=== PATIENT | female | born 1990 ===

== ENCOUNTER 2018-09-02 08:19 | Inpatient (IN) | payer MEDICAID ==
[2018-09-02 08:19] VITALS: BMI 37.1
[2018-09-02 08:27] VITALS: O2SAT 99
--- NOTE | 2018-09-02 09:58 | C.PDOC ---
History Of Present Illness 28 year old female with a PMHx of anxiety and depression presents for evaluation of depression. The patient states feeling more depressed over the last 3-4 months with intermittent SI but denies a plan. She notes worsening of symptoms prompting ED visit. Denies feeling SI in the ED. Denies HI and any other associated symptoms. Time Seen by Provider: 09/02/18 08:28 Chief Complaint (Nursing): Psychiatric Evaluation History Per: Patient History/Exam Limitations: no limitations Onset/Duration Of Symptoms: Other (3-4 months) Current Symptoms Are (Timing): Still Present Associated Symptoms: Depression, Suicidal Thoughts. denies: Suicidal Plan Recent travel outside of the [place]: No Past Medical History Reviewed: Historical Data, Nursing Documentation, Vital Signs Vital Signs: Last Vital Signs Temp 98.4 F 09/02/18 08:21 Pulse 71 09/02/18 08:21 Resp 20 09/02/18 08:21 BP 100/71 09/02/18 08:21 Pulse Ox 99 09/02/18 08:21 - Medical History PMH: Bipolar Disorder, Depression Denies: Chronic Kidney Disease Surgical History: Cholecystectomy, Family History: States: Unknown Family Hx - Social History Hx Tobacco Use: No Hx Alcohol Use: No Hx Substance Use: No - Immunization History Hx Tetanus Toxoid Vaccination: No Hx Influenza Vaccination: Yes Hx Pneumococcal Vaccination: No Review Of Systems Except As Marked, All Systems Reviewed And Found Negative. Psych: Positive for: Depression. Negative for: Suicidal ideation, Other (Homicial ideations. ) Physical Exam - Physical Exam Appears: Non-toxic, No Acute Distress Skin: Warm, Dry, No Rash Head: Atraumatic, Normacephalic Eye(s): bilateral: Normal Inspection Oral Mucosa: Moist Throat: No Erythema, No Exudate Neck: Normal ROM, Supple Chest: Symmetrical, No Deformity Cardiovascular: Rhythm Regular, No Friction Rub, No Murmur Respiratory: Normal Breath Sounds, No Rales, No Rhonchi, No Wheezing Gastrointestinal/Abdominal: Normal Exam, Soft, No Tenderness Back: Normal Inspection, No CVA Tenderness Extremity: Normal ROM, No Swelling Extremity: Bilateral: Atraumatic, Normal Color And Temperature, Normal ROM Neurological/Psych: Oriented x3, Normal Speech, Normal Cognition, Normal Motor, Normal Sensation Gait: Steady ED Course And Treatment - Laboratory Results Result Diagrams: 09/02/18 10:26 09/02/18 10:26 O2 Sat by Pulse Oximetry: 99 (RA) Pulse Ox Interpretation: Normal Medical Decision Making Medical Decision Making: Initial plan: -Blood sent. -Urine HCG -Urinalysis The case was discussed with psych oncall and agrees to admit the patient. Disposition - Disposition Disposition: HOME/ ROUTINE Disposition Time: 11:35 Condition: GOOD Forms: [employer] ([employer]) - POA Present On Arrival: None - Clinical Impression Clinical Impression: Bipolar disorder, Depressive episode - PA / PHYSICAL EDUCATION DEPARTMENT CHAIR / Resident Statement MD/DO has reviewed & agrees with the documentation as recorded. - Scribe Statement The provider has reviewed the documentation as recorded by the Scribe (Jihan Gabriel) All medical record entries made by the Scribe were at my direction and personally dictated by me. I have reviewed the chart and agree that the record accurately reflects my personal performance of the history, physical exam, medical decision making, and the department course for this patient. I have also personally directed, reviewed, and agree with the discharge instructions and disposition.
[2018-09-02 10:43] LABS: BASO % 0.3 % (0.0-2.0); EOS # 0.1 K/uL (0.0-0.7); EOS % 0.9 % (0.0-4.0); HEMOGLOBIN 12.8 g/dL (11.0-16.0); LYMPH # 1.1 K/uL (1.0-4.3); LYMPH % 16.2 % (20.0-40.0); MEAN CELL VOLUME 82.2 fL (81.0-99.0); MEAN CORPUSCULAR HEMOGLOBIN 27.9 pg (27.0-31.0); MEAN CORPUSCULAR HGB CONC 33.9 g/dL (33.0-37.0); MEAN PLATELET VOLUME 7.2 fL (7.2-11.7); MONO # 0.3 K/uL (0.0-0.8); MONO % 4.5 % (0.0-10.0); NEUT # 5.1 K/uL (1.8-7.0); NEUT % 78.1 % (50.0-75.0); RBC 4.59 Mil/uL (3.80-5.20); RED CELL DISTRIBUTION WIDTH 14.9 % (11.5-14.5); WHITE BLOOD COUNT 6.5 K/uL (4.8-10.8)
[2018-09-02 10:54] LABS: ALB/GLOB RATIO 1.4 (1.0-2.1); ALBUMIN 4.3 g/dL (3.5-5.0); ALT/SGPT 23 U/L (9-52); AST/SGOT 34 U/L (14-36); BLOOD UREA NITROGEN 18 mg/dL (7-17); GFR NON-AFRICAN AMERICAN > 60
[2018-09-02 11:00] LABS: HCG,QUALITATIVE URINE NEGATIVE (NEGATIVE)
[2018-09-02 11:02] LABS: SQUAMOUS EPITHIAL 1 /hpf (0-5); URINE BILIRUBIN NEGATIVE (NEGATIVE); URINE BLOOD NEGATIVE (NEGATIVE); URINE CLARITY Clear (Clear); URINE COLOR Straw (YELLOW); URINE GLUCOSE (UA) NORMAL (Normal); URINE LEUKOCYTE ESTERASE NEG Leu/uL (Negative); URINE PROTEIN NEGATIVE (NEGATIVE); URINE UROBILINOGEN NORMAL mg/dL (0.2-1.0)
[2018-09-02 11:04] LABS: BARBITURATES, UR NEGATIVE (NEGATIVE); BENZODIAZEPINES, UR NEGATIVE (NEGATIVE); OPIATES, UR NEGATIVE (NEGATIVE); PHENCYCLIDINE, UR NEGATIVE (NEGATIVE)
--- NOTE | 2018-09-02 12:01 | PCM.PSYCH ---
Initial Psychiatric Evaluation - Initial Psychiatric Evaluation Type of Admission: Voluntary Legal Status: Capacity Chief Complaint (in patient's own words): I was feeling depressed and suicidal. History of Present Illness and Precipitating Events: Pt is a 28 year old female, who came to the [facility] (formerly [facility]) emergency department for worsening symptoms of depression, anxiety, and fleeting suicidal thoughts. Patient denies any past history of any inpatient psychiatric hospitalizations and but reports history of follow-up with [facility] in the past. Patient reports that she has been feeling increasingly depressed and suicidal for the past 3-4 weeks. She reports that she has been feeling hopeless and helpless about the situation with her son and does not know where he is and the courts won't help. Patient's son's father has not been compliant with court requirements of allowing pt to see her son minimum x2 hours weekly, and now she does not know where he is. Yesterday she became increasingly depressed and suicidal and so sh e came to the hospital to get help. She reports depressed mood, at times feelings of hopelessness and helplessness. She also reports at times poor sleep and poor appetite. She denies any auditory or visual hallucinations or any paranoia. She denies any drinking or any substance abuse. Pt reports history of one suicide attempt as a minor, but cannot remember the methodology. Pt states she is diagnosed with Bipolar I disorder, and has been in and out of therapy, but never on psychiatric medication. Past medical history None reported Past Psychiatric History - Past Psychiatric History Previous Treatment History: None Pertinent Medical Hx (Current Medical&Sleep Prob, Allergies): Allergies Allergy/AdvReac Type Severity Reaction Status Date / Time No Known Allergies Allergy Verified 09/02/18 08:22 Diphenhydramine Hydrochlorid [Benadryl] 25 mg PO TID PRN #30 cap 04/24/14 Acetaminophen 625 mg PO QID PRN #60 tab 11/22/14 Ondansetron [Zofran] 4 mg PO Q6H PRN #10 tab 01/12/17 Naproxen [Naprosyn] 500 mg PO BID PRN #14 tablet 05/17/17 Ofloxacin Ophth 0.3% [Ocuflox Ophth 0.3%] 2 drop OS QID #1 bottle 06/07/17 Acetaminophen [Acetaminophen 8 Hour] 650 mg PO Q8 PRN #21 tablet.er 06/28/18 Naproxen 500 mg PO BID PRN #20 tab 06/28/18 Review of Systems - Review of Systems All systems: reviewed and no additional remarkable complaints except - Psychiatric Psychiatric: Anxiety, Irritability, Suicidal Ideation Mental Status Examination - Personal Presentation Personal Presentation: Looks stated age - Affect Affect: Constricted, Depressed - Motor Activity Motor Activity: Calm - Reliability in Providing Information Reliability in Providing Information: Fair - Speech Speech: Organized - Mood Mood: Depressed, Anxious - Formal Thought Process Formal Thought Process: No Impairment - Obsessions/Compulsions Obsessions: No Compulsions: No - Cognitive Functions Orientation: Person, Place, Situation, Time Sensorium: Alert Attention/Concentration: Attentive Abstract Thinking: [place] Estimate of Intelligence: Below average Judgement: Imparied, as evidence by: Poor judgement, Imparied, as evidence by: Lack of insight into illness - Risk Risk: Suicidal, Diminished functioning - Strength & Assets Inventory Strength & Assets Inventory: Family support DSM 5 DX - DSM 5 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
--- NOTE | 2018-09-02 15:00 | PCM.BM ---
<Hailee-RodriguezBrianna - Last Filed: 09/02/18 14:58> Treatment Plan Problems - Problems identified on initial assessmt altered sleep pattern Date Initiated: 09/02/18 Time Initiated: 15:00 Assessment reference: NA Status: Active Treatment assets and liabiliti Patient Assests: cooperative, good support system Patient Liabilities: relationship conflicts, legal issue - Milieu Protocol Maintain good personal hygiene: daily Encourage regular showers, daily Remind patient to perform daily oral care, daily Assist patient to perform ADL's Conduct patient checks and document Observation sheet: Q15 minutes Maintain personal safety: every shift Educate patient to report safety concerns to staff, every shift Monitor environment for contraband/sharps Medication safety: Monitor for expected outcome, potential side effects: every shift, Assess barriers to learning: every shift, Assess readiness for medication education: every shift <Shonda Maldonado - Last Filed: 09/03/18 11:48> Family Contact Family involvement: Patient does not wish Family/SO involvement Family contact: Patient declines to allow family contact at present - Goals for Treatment Patient goals for treatment: "I want to go to an outpatient program." Discharge/Continuing Care - Education Needs Education Needs: Patient Medication, Patient Diagnosis/Disease Process, Patient Coping Skills, Patient Placement options, Patient Community resources - Discharge Discharge Criteria: Free of Suicidal thoughts, Normal sleep pattern, Ability to care for self, No longer exhibiting s/s of withdrawal, Reduction of target symptoms Discharge to:: Home, With Family - Treatment Team Participation Discussed with Family/SO: No Was Patient/Family/SO present at Treatment Team Meeting: Yes
[2018-09-03] MEDS ORDERED: Naproxen 550 mg Tab PO PRN (00:08)
[2018-09-03 06:12] VITALS: RESP 18
--- NOTE | 2018-09-04 00:01 | PCM.PYCHPN ---
Psychiatric Progress Note - Psychiatric Progress Note Patient seen today, length of contact: 15 min Patient Chief Complaint: I was feeling depressed .' Problems Identified/Issues Discussed: Patient was seen and evaluated, chart reviewed and discussed with staff. As per staff, patient reports improvement in her mood and she signed a 48 hours notice. Patient reports some improvement in the feelings of hopelessness and helplessness. Patient reports some improvement in her sleep and appetite. She denies any auditory or visual hallucinations or any paranoia. Symptoms are improving gradually but she needs to stay longer for further stabilization. Supportive therapy was given Medication Change: Yes Medical Record Reviewed: Yes Mental Status Examination - Cognitive Function Orientation: Person, Place, Situation, Time Memory: Intact Attention: WNL Concentration: Poor Association: WNL Fund of Knowledge: Poor - Mood Mood: Depressed, Anxious - Affect Affect: Constricted, Depressed - Speech Speech: Soft - Formal Thought Process Formal Thought Process: No Impairment - Suicidal Ideation Suicidal Ideation: No - Homicidal Ideation Homicidal Ideation: No Goal/Treatment Plan - Goal/Treatment Plan Need for Continued Stay: Remain at risks for inpatient hospitalization Progress Toward Problem(s) and Goals/Treatment Plan: Major depressive disorder recurrent severe without psychotic features -CBT -Psychoeducation -Supportive therapy and group therapy -Trazodone for insomnia -Neurontin for augmentation -Paxil for depression -Hydroxyzine for anxiety
[2018-09-04 10:17] VITALS: BP 109/63; PULSE 86; TEMP 98.4
--- NOTE | 2018-09-04 10:35 | PCM.PYCHDC ---
Mental Status Examination - Mental Status Examination Orientation: Person, Place, Situation, Time Memory: Intact Mood: Neutral Affect: Constricted Speech: Soft Attention: WNL Concentration: WNL Association: WNL Fund of Knowledge: WNL Formal Thought Process: No Impairment Description of patient's judgement and insight: good, fair Psychotic Thoughts and Behaviors: denies any AVH Suicidal Ideation: No Current Homicidal Ideation?: No Discharge Summary - Discharge Note Reason for Hospitalization: Pt is a 28 year old female, who came to the [facility] emergency department for worsening symptoms of depression, anxiety, and fleeting suicidal thoughts. Patient denies any past history of any inpatient psychiatric hospitalizations and but reports history of follow-up with [facility] in the past. Patient reports that she has been feeling increasingly depressed and suicidal for the past 3-4 weeks. She reports that she has been feeling hopeless and helpless about the situation with her son and does not know where he is and the courts won't help. Patient's son's father has not been compliant with court requirements of allowing pt to see her son minimum x2 hours weekly, and now she does not know where he is. Yesterday she became increasingly depressed and suicidal and so she came to the hospital to get help. She reports depressed mood, at times feelings of hopelessness and helplessness. She also reports at times poor sleep and poor appetite. She denies any auditory or visual hallucinations or any paranoia. She denies any drinking or any substance abuse. Pt reports history of one suicide attempt as a minor, but cannot remember the methodology. Pt states she is diagnosed with Bipolar I disorder, and has been in and out of therapy, but never on psychiatric medication. Consultations:: List each consultation separately and include: 1. Reason for request. 2. Findings. 3. Follow-up Summary of Hospital Course include:: 1. Description of specific treatment plan utilized for patients during their course of treatmen. 2. Summarize the time-co urse for resolution of acute symptoms and/or regressed behaviors. 3. Describe issues identified and worked on during hospitalization. 4. Describe medication utilized. 5. Describe medical problems identified and treated. 6. Reassessment of suicide risk Summary of Hospital Course: Pt is a 28 year old female, who came to the [facility] emergency department for worsening symptoms of depression, anxiety, and fleeting suicidal thoughts. Patient denies any past history of any inpatient psychiatric hospitalizations and but reports history of follow-up with [facility] in the past. Patient reports that she has been feeling increasingly depressed and suicidal for the past 3-4 weeks. She reports that she has been feeling hopeless and helpless about the situation with her son and does not know where he is and the courts won't help. Patient's son's father has not been compliant with court requirements of allowing pt to see her son minimum x2 hours weekly, and now she does not know where he is. Yesterday she became increasingly depressed and suicidal and so she came to the hospital to get help. She reports depressed mood, at times feelings of hopelessness and helplessness. She also reports at times poor sleep and poor appetite. She denies any auditory or visual hallucinations or any paranoia. She denies any drinking or any substance abuse. Pt reports history of one suicide attempt as a minor, but cannot remember the methodology. Pt states she is diagnosed with Bipolar I disorder, and has been in and out of therapy, but never on psychiatric me dication. Past medical history None reported - Final Diagnosis (DSM 5) Condition upon Discharge: GOOD DSM 5: Major depressive disorder recurrent severe without psychotic features Disposition: HOME/ ROUTINE Follow-up Treatment Plan: Major depressive disorder recurrent severe without psychotic features -CBT -Psychoeducation -Supportive therapy and group therapy -Trazodone for insomnia -Neurontin for augmentation -Paxil for depression -Hydroxyzine for anxiety Prescriptions/Medication Reconciliation: Gabapentin [Neurontin] 300 mg PO TID 14 Days cap PARoxetine [Paxil] 10 mg PO DAILY 14 Days tab traZODone [Desyrel] 50 mg PO HS #14 tab - Smoking Cessation Smoking Cessation Medication prescribed: No - Antipsychotic Medications Pt discharged on 2 or more routine antipsychotic medications: No
[2018-09-05] MEDS ORDERED: Pneumococcal 23-Valent Vaccine IM ONE (10:00)
[2018-09-05] MEDS ORDERED: Influenza Vaccine 60 mcg/0.5 mL SYR (4YR UP) IM ONE (10:00)
== END 2018-09-04 11:43 | disposition home or self-care (01) | DRG 430 ==
LOC: C.ER 08:19 → C.5E 11:31
PROVIDERS: ADMIT Psychiatry & Neurology Psychiatry; ATTEND Psychiatry & Neurology Psychiatry
PROC: GZHZZZZ Group Psychotherapy (ICD-10-PCS; principal; 2018-09-02)
PROC: GZ56ZZZ Individual Psychotherapy, Supportive (ICD-10-PCS; 2018-09-02)
DX: F33.2 Major depressive disorder, recurrent severe without psychotic features (principal); F41.9 Anxiety disorder, unspecified; G47.00 Insomnia, unspecified